=== PATIENT | male | born 1965 | race Caucasian/White ===

== ENCOUNTER 2016-12-11 05:26 | Day surgery (SDC) | payer OTHER ==
[~2016-12-11] VITALS: Ht 180.3 cm; Wt 78.8 kg
[2016-12-11 06:12] VITALS: BP 120/71; PULSE 64; TEMP 97.6
[2016-12-11] MEDS ORDERED: MOTRIN 600600 MG/TAB PO (09:27)
[2016-12-11] MEDS ORDERED: NORCO 325 MG-51 TAB PO (09:27)
[2016-12-11] MEDS ORDERED: COLACE 100100 MG/CAP PO (09:27)
[2016-12-11 09:45] VITALS: BP 115/74; PULSE 61; TEMP 97.6
[2016-12-11 10:00] VITALS: BP 118/74; PULSE 60
[2016-12-11 10:15] VITALS: BP 114/71; PULSE 53
[2016-12-11 10:30] VITALS: BP 109/69; PULSE 53
[2016-12-11 11:00] VITALS: BP 104/63; PULSE 54
== END 2016-12-11 11:35 | disposition home or self-care (01) ==
LOC: SDCO 05:26
DX: K40.90 Unilateral inguinal hernia, without obstruction or gangrene, not specified as recurrent (principal)
CPT/HCPCS: A4315; C1781; J2405; J2704; J3010; J7120